=== PATIENT | male | born 1990 | race Caucasian/White ===

== ENCOUNTER 2023-03-06 22:53 | Inpatient (IN) | payer BC ==
[2023-03-07] MEDS ORDERED: DIPH,PERTUS(ACELL)TETVAC-LF 0.5 ML VIAL IM ONE (00:07)
[2023-03-07] MEDS ORDERED: VANCOMYCIN IV PER PHARMACY 1 EACH MISC MISCELLANE PRN (00:10)
[2023-03-07] MEDS ORDERED: AMPICILLIN-SULBACTAM 1.5 GM in SODIUM CHLORIDE 0.9% 50 ML IVPB STA (00:12)
[2023-03-07] MEDS ORDERED: VANCOMYCIN 1,500 MG in SODIUM CHLORIDE 0.9% 500 ML 500 ML IVPB STA (00:13)
[2023-03-07] MEDS ORDERED: NALOXONE 0.4 MG/ML 1 ML VIAL IV PRN (00:16)
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
[2023-03-07 00:51] LABS: African American GFR (CKD) >90 (>60 ml/min/1.73 sqM); Anion Gap 12 mmol/L; Blood Urea Nitrogen 13 mg/dL (9-20); C Reactive Protein 1.9 mg/dL (<1.0); Calcium 9.7 mg/dL (8.4-10.2); Carbon Dioxide 23 mmol/L (22-30); Chloride 102 mmol/L (98-107); Glucose 97 mg/dL (74-99); Non-African American GFR(CKD) >90 (>60 ml/min/1.73 sqM); Potassium 4.3 mmol/L (3.5-5.1); Sodium 137 mmol/L (137-145)
[2023-03-07 01:06] LABS: Basophils % (A) 0 %; Eosinophils # (A) 0.1 k/uL (0-0.7); Eosinophils % (A) 1 %; HCT 39.7 % (39.0-53.0); HGB 13.3 gm/dL (13.0-17.5); Lymphocytes # (A) 2.1 k/uL (1.0-4.8); Lymphocytes % (A) 20 %; MCHC 33.6 g/dL (31.0-37.0); MCV 86.3 fL (80.0-100.0); Mean Platelet Volume 7.8; Monocytes # (A) 0.8 k/uL (0-1.0); Monocytes % (A) 8 %; Neutrophils # (A) 7.5 k/uL (1.3-7.7); Neutrophils % (A) 69 %; Platelet Count 282 k/uL (150-450); RBC 4.61 m/uL (4.30-5.90); RDW 13.2 % (11.5-15.5); WBC 10.8 k/uL (3.8-10.6)
[2023-03-07] MEDS: SODIUM CHLORIDE 0.9% 1,000 ML IV SCH (01:22)
[2023-03-07 01:52] LABS: Erythrocyte Sedimentation Rate 9 mm/hr (0-15)
--- NOTE | 2023-03-07 02:36 | XR ---
EXAM: XR Right Hand, 2 Views CLINICAL HISTORY: ITS.REASON XR Reason: puncture injury at base of 3rd digit TECHNIQUE: Frontal and lateral views of the right hand. COMPARISON: No relevant prior studies available. FINDINGS: Bones/joints: Unremarkable. No fracture or malalignment. Soft tissues: Unremarkable. No radiopaque foreign body. IMPRESSION: Normal right hand x-rays.
[2023-03-07] MEDS: AMPICILLIN-SULBACTAM 1.5 GM in SODIUM CHLORIDE 0.9% 50 ML IVPB SCH ×3 (06:41→21:04)
--- NOTE | 2023-03-07 09:44 | P.CNOR ---
History of Present Illness - HPI Consult date: 03/07/23 History of present illness: 32 year old male with 2 day history of right right middle finger swelling after he punctured the volar aspect of his middle finger with needle nose pliers. He noticed some swelling and discomfort and redness develop in the hand shortly after. He denies any fevers or chills and notes it started to drain a small amount of purulent fluid. His pain and swelling has improved over the last 24 hours and he denies any other areas of pain. Past Medical History Past Medical History: No Reported History History of Any Multi-Drug Resistant Organisms: None Reported Additional Past Surgical History / Comment(s): spleen removed Smoking Status: Never smoker Medications and Allergies Home Medications Medication Instructions Recorded Confirmed Type No Known Home Medications 03/07/23 03/07/23 History Allergies Allergy/AdvReac Type Severity Reaction Status Date / Time No Known Allergies Allergy Verified 03/07/23 07:58 Physical Examination Osteopathic Statement: *. No significant issues noted on an osteopathic structural exam other than those noted in the History and Physical/Consult. RUE: 3mm puncture wound over volar aspect of middle phalanx with open wound with slight erythema around edges. Patient has no pain with palpation along the flexor tendon sheath or deep palm. He is able to make a fist. He has no pain with passive extension of the digit, no fusiform swelling and no fixed flexed position. Cap refill < 3 seconds. FDP/FDS intact against resistance without pain. Results - Labs Labs: Abnormal Lab Results - Last 24 Hours (Table) 03/07/23 03/07/23 Range/Units 00:24 00:24 WBC 10.8 H (3.8-10.6) k/uL C-Reactive Protein 1.9 H (<1.0) mg/dL H & H 03/07/23 Range/Units 00:24 Hgb 13.3 (13.0-17.5) gm/dL Hct 39.7 (39.0-53.0) % Result Diagrams: 03/07/23 00:24 03/07/23 00:24 Assessment and Plan Assessment: 1.) Right middle finger puncture wound with surrounding cellulitis Plan: Patient seen and examined at bedside by myself. He has no signs of pyogenic flexor tenosynovitis and 0/4 [place] signs. He may continue antibiotics and start warm soapy soaks for 20 minutes 3x a day. We will plan to closely observe him over the next 24 hours. NPO at midnight in case of need for washout tomorrow, no current plans for any surgical intervention if his symptoms remain stable with no signs of pyogenic flexor tenosynovitis. -Fer Marie
[2023-03-07] MEDS ORDERED: ACETAMINOPHEN TAB 325 MG TAB PO PRN (10:10)
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
[2023-03-07] MEDS: VANCOMYCIN 1,500 MG in SODIUM CHLORIDE 0.9% 500 ML 500 ML IVPB SCH ×2 (11:05→17:25)
--- NOTE | 2023-03-07 21:43 | P.CONS ---
History of Present Illness - Reason for Consult Consult date: 03/07/23 - History of Present Illness Patient is a 32-year male with no significant past medical history presenting to the hospital with a right middle finger swelling after apparently the patient did puncture the volar aspect of his right middle finger with needle pliers, patient mentioned the area started getting swollen and started having redness on the dorsum aspect of his right hand has also been complaining of some drainage which was mostly purulent patient has been complaining of some throbbing pain 5-6 out of 10 no radiation with the same to the patient was evaluated on presentation to the hospital patient was afebrile no fever hypercardia subsequently patient did have vital 10.8 creatinine was normal CRP was 1.9 patient did have x-ray of the hand did not show any bony abnormality local culture has been obtained currently pending patient was started on vancomycin and Allisonn infectious disease was consulted for further management of antibiotic therapy consulted for possible flexor tenosynovitis of the right middle finger Past Medical History Past Medical History: No Reported History History of Any Multi-Drug Resistant Organisms: None Reported Additional Past Surgical History / Comment(s): spleen removed Smoking Status: Never smoker Medications and Allergies Home Medications Medication Instructions Recorded Confirmed Type No Known Home Medications 03/07/23 03/07/23 History Allergies Allergy/AdvReac Type Severity Reaction Status Date / Time No Known Allergies Allergy Verified 03/07/23 07:58 Physical Exam Vitals: Vital Signs Temp Pulse Pulse Resp BP BP Pulse Ox 03/07/23 14:15 97.4 F L 63 16 123/75 99 03/07/23 07:25 98.2 F 58 L 18 115/66 96 03/07/23 01:24 66 18 118/81 97 03/06/23 23:01 98.3 F 89 18 129/79 99 Intake and Output 03/07/23 03/07/23 03/07/23 06:59 14:59 22:59 Intake Total 520 240 Output Total 0 Balance 520 240 Intake: Intake, IV Titration 520 Amount Sodium Chloride 0.9% 1, 20 000 ml @ 20 mls/hr IV . Q24H [facility] Rx#:[id number] Vancomycin 1,500 mg In 500 Sodium Chloride 0.9% 500 ml 500 ml @ 167 mls/hr IVPB Q8H [facility] Rx#: [id number] Oral 240 Output: Urine 0 Other: Voiding Method Toilet # Voids 4 # Bowel Movements 1 Weight 79.379 kg Results CBC & Chem 7: 03/07/23 00:24 03/07/23 00:24 Labs: Abnormal Lab Results - Last 24 Hours (Table) 03/07/23 03/07/23 Range/Units 00:24 00:24 WBC 10.8 H (3.8-10.6) k/uL C-Reactive Protein 1.9 H (<1.0) mg/dL Assessment and Plan Plan: 1patient presented to the hospital with a right middle finger pain swelling redness with some swelling on the dorsum aspect of the right hand with recent injury to the base of the right middle finger concerning for cellulitis/tenosynovitis likely from gram-positive skin mary 2-we will check inflammatory markers 3-continue with the vancomycin and Unasyn while waiting for the culture to finalize We will follow on clinical condition and cultures to further adjust medication if needed Thank you for this consultation we will follow the patient along with you Dictation was produced using [employer] dictation software. please excuse any grammatical, word or spelling errors. Time with Patient: Greater than 30
[2023-03-08] MEDS: AMPICILLIN-SULBACTAM 1.5 GM in SODIUM CHLORIDE 0.9% 50 ML IVPB SCH ×4 (00:40→18:40)
[2023-03-08] MEDS: SODIUM CHLORIDE 0.9% 1,000 ML IV SCH (00:42)
[2023-03-08] MEDS: VANCOMYCIN 1,500 MG in SODIUM CHLORIDE 0.9% 500 ML 500 ML IVPB SCH ×3 (02:36→20:00)
[2023-03-08] MEDS: PANTOPRAZOLE 40 MG TABLET PO SCH (08:01)
[2023-03-08] MEDS ORDERED: VANCOMYCIN TROUGH DUE 1 EACH MISC MISCELLANE ONE (09:00)
[2023-03-08] MEDS: ENOXAPARIN 40 MG/0.4 ML SYRINGE SQ SCH (09:57)
[2023-03-08] MEDS ORDERED: SODIUM FERRIC GLUCONAT-SUCROSE 125 MG in SODIUM CHLORIDE 0.9% 100 ML IVPB ONE (10:42)
[2023-03-08 10:43] LABS: Basophils % (A) 0 %; Eosinophils # (A) 0.1 k/uL (0-0.7); Eosinophils % (A) 2 %; HCT 40.1 % (39.0-53.0); Lymphocytes # (A) 1.7 k/uL (1.0-4.8); Lymphocytes % (A) 22 %; MCH 28.6 pg (25.0-35.0); MCHC 32.5 g/dL (31.0-37.0); MCV 87.9 fL (80.0-100.0); Mean Platelet Volume 7.4; Monocytes # (A) 0.6 k/uL (0-1.0); Monocytes % (A) 8 %; Neutrophils # (A) 4.9 k/uL (1.3-7.7); Neutrophils % (A) 66 %; Platelet Count 294 k/uL (150-450); RBC 4.56 m/uL (4.30-5.90); RDW 13.3 % (11.5-15.5); WBC 7.5 k/uL (3.8-10.6)
[2023-03-08 10:55] LABS: ALT 56 U/L (4-49); AST 44 U/L (17-59); African American GFR (CKD) >90 (>60 ml/min/1.73 sqM); Albumin 4.3 g/dL (3.5-5.0); Alkaline Phosphatase 66 U/L (38-126); Anion Gap 10 mmol/L; Blood Urea Nitrogen 10 mg/dL (9-20); Calcium 9.6 mg/dL (8.4-10.2); Carbon Dioxide 25 mmol/L (22-30); Chloride 105 mmol/L (98-107); Glucose 102 mg/dL (74-99); Non-African American GFR(CKD) >90 (>60 ml/min/1.73 sqM); Potassium 4.6 mmol/L (3.5-5.1); Sodium 140 mmol/L (137-145); Total Bilirubin 0.5 mg/dL (0.2-1.3); Total Protein 7.5 g/dL (6.3-8.2)
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
--- NOTE | 2023-03-08 15:14 | P.PN ---
Subjective Progress Note Date: 03/08/23 Principal diagnosis: Right middle finger puncture wound with surrounding cellulitis Patient was seen at bedside this morning walk around the room with significant other. Patient says he feels that the swelling in the right middle finger/hand has been improving since yesterday. Patient says the redness is also been decreasing. Patient is currently on IV antibiotics and cultures are pending currently. Patient denies any significant pain to the area. Patient denies any other changes. Patient denies numbness/tingling in the hand. Patient denies chest pain, fever, shortness breath, nausea, lying, change in vision, possible/bladder control. Objective - Vital Signs Vital signs: Vital Signs Temp 98.2 F 03/08/23 07:00 Pulse 55 L 03/08/23 07:00 Resp 16 03/08/23 07:00 BP 109/63 03/08/23 07:00 Pulse Ox 97 03/08/23 07:00 FiO2 Intake & Output 03/07/23 03/08/23 03/08/23 18:59 06:59 18:59 Intake Total 490 1050 Balance 490 1050 Intake: Intake, IV Titration 1050 Amount Ampicillin-Sulbactam 1.5 50 gm In Sodium Chloride 0.9 % 50 ml @ 100 mls/hr IVPB Q6H [facility] Rx#:[id number] Vancomycin 1,500 mg In 1000 Sodium Chloride 0.9% 500 ml 500 ml @ 167 mls/hr IVPB Q8H [facility] [place] Rx#: [id number] Oral 490 Other: Voiding Method Toilet Toilet # Voids 4 # Bowel Movements 1 - Exam Right upper extremity: Puncture wound present over the volar aspect of the middle phalanx with open wound. There is minimal tenderness to palpation at the base of the right middle phalanx. Nontender to palpation throughout rest of exam in palm of hand. No pain with passive extension of digit no fusiform swelling. Cap refill under 3 seconds. Radial pulse intact, 2+ bilaterally. - Labs CBC & Chem 7: 03/08/23 10:29 03/08/23 10:29 Labs: Abnormal Lab Results - Last 24 Hours (Table) 03/08/23 Range/Units 10:29 Glucose 102 H (74-99) mg/dL ALT 56 H (4-49) U/L Microbiology - Last 24 Hours (Table) 03/07/23 08:00 Gram Stain - Preliminary Hand - Right Wound Culture - Preliminary Assessment and Plan Assessment: 1. Right middle finger puncture wound with surrounding cellulitis - Plan: 1. Right middle finger puncture wound with surrounding cellulitis - pt symptoms are improving. Patient currently on IV antibiotics. Patient is okay to be on Regular diet. We do recommend patient to follow-up in the outpatient setting with Dr. Marie for continued evaluation of hand. Patient currently on IV antibiotics. Patient is stable from an orthopedic standpoint for discharge. At this time orthopedics is signing off. Please do not hesitate to contact us for any further questions. 2. Appreciate medical and ID management 3. Pain management - Tylenol 4. DVT prophylaxis - Lovenox 5. GI prophylaxis - Protonix 6. PT/OT - weightbearing as tolerated; general range of motion exercises 7. Appreciate consult Time with Patient: Less than 30
[2023-03-09] MEDS: AMPICILLIN-SULBACTAM 1.5 GM in SODIUM CHLORIDE 0.9% 50 ML IVPB SCH ×2 (00:02→08:12)
[2023-03-09] MEDS: VANCOMYCIN 1,500 MG in SODIUM CHLORIDE 0.9% 500 ML 500 ML IVPB SCH ×2 (01:30→11:26)
[2023-03-09] MEDS: SODIUM CHLORIDE 0.9% 1,000 ML IV SCH (03:21)
[2023-03-09 08:08] LABS: ALT 64 U/L (4-49); AST 50 U/L (17-59); African American GFR (CKD) >90 (>60 ml/min/1.73 sqM); Albumin 4.2 g/dL (3.5-5.0); Albumin/Globulin Ratio 1.4; Alkaline Phosphatase 62 U/L (38-126); Anion Gap 9 mmol/L; Blood Urea Nitrogen 10 mg/dL (9-20); Calcium 9.7 mg/dL (8.4-10.2); Carbon Dioxide 28 mmol/L (22-30); Chloride 103 mmol/L (98-107); Globulin 3.1 g/dL; Glucose 93 mg/dL (74-99); Non-African American GFR(CKD) >90 (>60 ml/min/1.73 sqM); Potassium 4.6 mmol/L (3.5-5.1); Sodium 140 mmol/L (137-145); Total Bilirubin 0.4 mg/dL (0.2-1.3); Total Protein 7.3 g/dL (6.3-8.2)
[2023-03-09 08:12] VITALS: BP 112/66; PULSE 61; RESP 18; TEMP 98.1
[2023-03-09] MEDS: PANTOPRAZOLE 40 MG TABLET PO SCH (08:13)
[2023-03-09] MEDS: ENOXAPARIN 40 MG/0.4 ML SYRINGE SQ SCH (08:13)
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
[2023-03-09 11:08] LABS: Basophils # (A) 0.05 X 10*3/uL (0.00-0.10); Basophils % (A) 0.6 %; Eosinophils # (A) 0.15 X 10*3/uL (0.04-0.35); Eosinophils % (A) 1.8 %; HCT 40.8 % (39.6-50.0); Lymphocytes # (A) 2.25 X 10*3/uL (0.90-5.00); Lymphocytes % (A) 27.7 %; MCH 27.8 pg (27.0-32.0); MCHC 31.9 d/dL (32.0-37.0); MCV 87.2 FL (80.0-97.0); Monocytes # (A) 1.06 X 10*3/uL (0.20-1.00); NRBC Per 100 WBC 0 X 10*3/uL (0.00-0.01); Neutrophils # (A) 4.61 X 10*3/uL (1.80-7.70); Neutrophils % (A) 56.8 %; Platelet Count 346 X 10*3/uL (140-440); RBC 4.68 X 10*6/uL (4.40-5.60); RDW 13.8 % (11.5-14.5); WBC 8.13 X 10*3/uL (4.50-10.00)
[2023-03-10] MEDS ORDERED: VANCOMYCIN TROUGH DUE 1 EACH MISC MISCELLANE ONE (09:00)
== END 2023-03-09 13:07 | disposition home or self-care (01) | DRG 605 ==
LOC: EC 22:53 → 1SOBS 03-07 00:16 → 5NMEDONC 03-08 15:02
PROVIDERS: ADMIT Internal Medicine; ATTEND Internal Medicine
PROC: 3E0234Z Introduction of Serum, Toxoid and Vaccine into Muscle, Percutaneous Approach (ICD-10-PCS; principal; 2023-03-07)
DX: S61.232A Puncture wound without foreign body of right middle finger without damage to nail, initial encounter (principal); M65.841 Other synovitis and tenosynovitis, right hand; L03.011 Cellulitis of right finger; Z90.81 Acquired absence of spleen; Z28.310 Unvaccinated for COVID-19; Z23 Encounter for immunization; W27.8XXA Contact with other nonpowered hand tool, initial encounter
CPT/HCPCS: 36415; 80048; 80053; 80202; 85025; 85652; 86140; 87070; 87075; 87205; 90471; 90715; 96365; 96368; 99285